=== PATIENT | female | born 1940 | race Caucasian/White ===

== ENCOUNTER 2019-04-17 09:30 | Emergency (ER) | payer OTHER ==
[2019-04-17] MEDS ORDERED: ONDANSETRON 4 MG/2 ML VIAL ONE (09:52)
[2019-04-17] MEDS ORDERED: MORPHINE 4 MG/ML SYR ONE (09:52)
[2019-04-17] MEDS ORDERED: NA CHLORIDE 0.9% 1,000 ML ONE (09:52)
[2019-04-17 10:07] LABS: Absolute Lymphocytes (CBC) 2.1 K/uL (0.7-4.9); Basophils % 0.3 % (0-1.3); Hematocrit 42.5 % (36.0-45.0); Lymphocytes % 26.4 % (15.3-44.8); MPV 9.3 fL (7.6-11.3); RBC Red Blood Cell Count 4.75 M/uL (3.86-4.86)
[2019-04-17 10:10] LABS: Protime INR 1.04
[2019-04-17 10:26] LABS: ALT/SGPT 31 U/L (12-78); AST/SGOT 24 U/L (15-37); Albumin 3.2 g/dL (3.4-5.0); Alkaline Phosphatase 103 U/L (45-117); BUN Blood Urea Nitrogen 9 mg/dL (7-18); Bicarbonate 26 mmol/L (21-32); Bilirubin Direct 0.2 mg/dL (0-0.2); Bilirubin Total 0.6 mg/dL (0.2-1.0); Glucose Level 132 mg/dL (74-106); Magnesium 2.1 mg/dL (1.8-2.4); NT PRO-BNP 54 pg/mL (<450); Potassium 3.9 mmol/L (3.5-5.1); Protein, Total 6.6 g/dL (6.4-8.2); Sodium Level 141 mmol/L (136-145); Troponin (Emerg Dept Use Only) < 0.02 ng/mL (0.0-0.045)
[2019-04-17] MEDS ORDERED: HYDROMORPHONE HCL 0.5 MG/0.5 ML INJ ONE (10:32)
--- NOTE | 2019-04-17 11:49 | EDPHYS ---
Physician Documentation [facility] Name: Miley Blackburn Age: 78 yrs Sex: Female : 1940 Arrival Date: 04/17/2019 Time: 09:[address] Private MD: ED Physician Dustin Finn HPI: 04/17 09:45 This 78 yrs old Female presents to ER via EMS with complaints of Fall Injury. [facility] 09:45 Details of fall: The patient fell from an upright position, while running, while soren walking. Onset: The symptoms/episode began/occurred just prior to arrival. Associated injuries: The patient sustained injury to the head, left hip, left gluteal fold, left inner thigh and left upper thigh, decreased range of motion, painful injury. Severity of symptoms: At their worst the symptoms were moderate, in the emergency department the symptoms are unchanged. The patient has not experienced similar symptoms in the past. Historical: - Allergies: 09:38 No Known Allergies; tw2 - Home Meds: 09:38 None [Active]; tw2 - PMHx: 09:38 None; tw2 - PSHx: 09:38 tubal ; partial thyroidectomy; tw2 - Immunization history:: Adult Immunizations. - Coronavirus screen:: The patient has NOT traveled to [place], [place], or [place] in the past 14 days. - Immunization history: Last tetanus immunization: unknown. - Family history:: not pertinent. - Social history:: Smoking status: . - Ebola Screening: : Patient denies travel to an Ebola-affected area in the 21 days before illness onset. ROS: 09:45 Constitutional: Negative for fever, chills, and weight loss, Eyes: Negative for injury, soren pain, redness, and discharge, ENT: Negative for injury, pain, and discharge, Neck: Negative for injury, pain, and swelling, Cardiovascular: Negative for chest pain, palpitations, and edema, Respiratory: Negative for shortness of breath, cough, wheezing, and pleuritic chest pain, Abdomen/GI: Negative for abdominal pain, nausea, vomiting, diarrhea, and constipation, Back: Negative for injury and pain, : Negative for injury, bleeding, discharge, and swelling, Skin: Negative for injury, rash, and discoloration, Neuro: Negative for headache, weakness, numbness, tingling, and seizure, Psych: Negative for depression, anxiety, suicide ideation, homicidal ideation, and hallucinations, Allergy/Immunology: Negative for hives, rash, and allergies, Endocrine: Negative for neck swelling, polydipsia, polyuria, polyphagia, and marked weight changes, Hematologic/Lymphatic: Negative for swollen nodes, abnormal bleeding, and unusual bruising. 09:45 MS/extremity: Positive for decreased range of motion, pain, swelling, tenderness, of the left hip, lateral aspect of left thigh, left gluteal fold, left hamstring, left inner thigh, medial aspect of left thigh, left upper thigh and left quadriceps. Exam: 09:45 Constitutional: This is a well developed, well nourished patient who is awake, alert, soren and in no acute distress. Head/Face: Normocephalic, atraumatic. Eyes: Pupils equal round and reactive to light, extra-ocular motions intact. Lids and lashes normal. Conjunctiva and sclera are non-icteric and not injected. Cornea within normal limits. Periorbital areas with no swelling, redness, or edema. ENT: Nares patent. No nasal discharge, no septal abnormalities noted. Tympanic membranes are normal and external auditory canals are clear. Oropharynx with no redness, swelling, or masses, exudates, or evidence of obstruction, uvula midline. Mucous membranes moist. Neck: Trachea midline, no thyromegaly or masses palpated, and no cervical lymphadenopathy. Supple, full range of motion without nuchal rigidity, or vertebral point tenderness. No Meningismus. Chest/axilla: Normal chest wall appearance and motion. Nontender with no deformity. No lesions are appreciated. Cardiovascular: Regular rate and rhythm with a normal S1 and S2. No gallops, murmurs, or rubs. Normal PMI, no JVD. No pulse deficits. Respiratory: Lungs have equal breath sounds bilaterally, clear to auscultation and percussion. No rales, rhonchi or wheezes noted. No increased work of breathing, no retractions or nasal flaring. Abdomen/GI: Soft, non-tender, with normal bowel sounds. No distension or tympany. No guarding or rebound. No evidence of tenderness throughout. Back: No spinal tenderness. No costovertebral tenderness. Full range of motion. Skin: Warm, dry with normal turgor. Normal color with no rashes, no lesions, and no evidence of cellulitis. Neuro: Awake and alert, GCS 15, oriented to person, place, time, and situation. Cranial nerves II-XII grossly intact. Motor strength 5/5 in all extremities. Sensory grossly intact. Cerebellar exam normal. Normal gait. Psych: Awake, alert, with orientation to person, place and time. Behavior, mood, and affect are within normal limits. 09:45 Musculoskeletal/extremity: Extremities: noted in the left hip, lateral aspect of left thigh, left gluteal fold, left hamstring, left inner thigh, medial aspect of left thigh, left upper thigh and left quadriceps: decreased ROM, pain. Vital Signs: 09:36 BP 115 / 57; Pulse 70; Resp 17; Temp 97.6(TE); Pulse Ox 100% on R/A; Weight 49.9 kg tw2 (R); Height 5 ft. 0 in. (152.40 cm); Pain 10/10; 11:21 BP 122 / 58; Pulse 72; Resp 17; Pulse Ox 87% on R/A; tw2 12:49 BP 113 / 63; Pulse 62; Resp 17; Pulse Ox 98% on R/A; tw2 13:20 BP 144 / 63; Pulse 84; Resp 16; Pulse Ox 100% on 2 lpm NC; tw2 09:36 Body Mass Index 21.48 (49.90 kg, 152.40 cm) tw2 11:21 pt placed on o2 via 2l nc at this time, provider notified, will continue to monitor tw2 Oscar Coma Score: 09:32 Eye Response: spontaneous(4). Verbal Response: oriented(5). Motor Response: obeys tw2 commands(6). Total: 15. Trauma Score (Adult): 09:32 Eye Response: spontaneous(1); Verbal Response: oriented(1); Motor Response: obeys tw2 commands(2); Systolic BP: > 89 mm Hg(4); Respiratory Rate: 10 to 29 per min(4); Oscar Score: 15; Trauma Score: 12 MDM: 09:36 Patient medically screened. [facility] 09:47 Data reviewed: vital signs, nurses notes, lab test result(s), EKG, radiologic studies, soren plain films. 04/17 09:44 Order name: Basic Metabolic Panel; Complete Time: 11:55 [facility] 04/17 09:44 Order name: CBC with Diff; Complete Time: 11:55 soren 04/17 09:44 Order name: LFT's; Complete Time: 11:55 [facility] 04/17 09:44 Order name: Magnesium; Complete Time: 11:55 [facility] 04/17 09:44 Order name: NT PRO-BNP; Complete Time: 11:55 [facility] 04/17 09:44 Order name: PT-INR; Complete Time: 11:55 [facility] 04/17 09:44 Order name: Troponin (emerg Dept Use Only); Complete Time: 11:55 [facility] 04/17 09:44 Order name: XRAY Chest (1 view); Complete Time: 12:43 soren 04/17 09:44 Order name: Pelvis XRAY; Complete Time: 12:43 [facility] 04/17 09:44 Order name: Hip Left 2 View XRAY [facility] 04/17 09:44 Order name: Femur Left XRAY [facility] 04/17 11:16 Order name: CT Pelvis wo Cont: attention left hip; Complete Time: 12:43 04/17 09:44 Order name: EKG; Complete Time: 09:45 [facility] 04/17 09:44 Order name: Cardiac monitoring; Complete Time: 10:03 [facility] 04/17 09:44 Order name: EKG - Nurse/Tech; Complete Time: 12:37 [facility] 04/17 09:44 Order name: IV Saline Lock; Complete Time: 10:04 [facility] 04/17 09:44 Order name: Labs collected and sent; Complete Time: 10:04 [facility] 04/17 09:44 Order name: O2 Per Protocol; Complete Time: 11:54 [facility] 04/17 09:44 Order name: O2 Sat Monitoring; Complete Time: 11:54 [facility] 04/17 12:00 Order name: Luna; Complete Time: 12:35 aa5 Administered Medications: 10:00 Drug: Zofran 4 mg Route: IVP; Site: left antecubital; tw2 10:44 Follow up: Response: No adverse reaction tw2 10:02 Drug: morphine 4 mg Route: IVP; Site: left antecubital; tw2 10:40 Follow up: Response: No adverse reaction; Pain is unchanged, physician notified tw2 10:02 Drug: NS 0.9% 500 ml Route: IV; Rate: bolus; Site: left antecubital; tw2 13:21 Follow up: IV Status: Infusion continued upon transfer tw2 10:02 Drug: NS 0.9% 1000 ml Route: IV; Rate: 125 ml/hr; Site: left antecubital; tw2 13:21 Follow up: IV Status: Infusion continued upon transfer tw2 10:37 Drug: Dilaudid 0.5 mg {Note: rass 0 .} Route: IVP; Site: left antecubital; tw2 12:02 Follow up: Response: No adverse reaction; Pain is decreased; RASS: Light sedation (-2) tw2 13:21 Not Given (pts condition): Dilaudid 0.5 mg IVP once; RASS on ADMIN: Combtv4, Very tw2 Agttd3, Agttd2, Rstlss1, AlertClm0, Drwsy-1, Lt Sdtn-2, Mod Sdtn-3, Dp Sdtn-4, UnArsble-5 Disposition: 04/17/19 11:47 Transfer ordered to [facility]. Diagnosis are Posterior dislocation of left hip, Fracture of other parts of pelvis, Fracture of posterior wall of acetabulum, Superficial injury of head. - Reason for transfer: Higher level of care. - Accepting physician is to [facility]. - Condition is Fair. - Problem is new. - Symptoms have improved. Signatures: Dispatcher [employer] EDDustin Hughes MD MD cha Calderon, Audri, RN RN aa5 Lea Aldridge RN RN tw2 Corrections: (The following items were deleted from the chart) 11:48 11:47 04/17/2019 11:47 Transfer ordered to [facility]. Diagnosis is [facility] Posterior dislocation of left hip; Fracture of other parts of pelvis; Fracture of posterior wall of acetabulum. Reason for transfer: Higher level of care. Accepting physician is to [facility]. Condition is Fair. Problem is new. Symptoms have improved. [facility] 12:58 12:43 Head C Spine MPR Wo Con+CT.RAD.BRZ ordered. EDMS EDMS 12:59 12:43 Facial Bones W/ MPR+CT.RAD.BRZ ordered. EDOK EDMS 13:21 11:48 04/17/2019 11:47 Transfer ordered to [facility]. Diagnosis is tw2 Posterior dislocation of left hip; Fracture of other parts of pelvis; Fracture of posterior wall of acetabulum; Superficial injury of head. Reason for transfer: Higher level of care. Accepting physician is to [facility]. Condition is Fair. Problem is new. Symptoms have improved. soren
--- NOTE | 2019-04-17 11:49 | ER ---
Nurse's Notes [facility] Name: Miley Blackburn Age: 78 yrs Sex: Female : 1940 Arrival Date: 04/17/2019 Time: 09:[address] Private MD: Diagnosis: Posterior dislocation of left hip;Fracture of other parts of pelvis;Fracture of posterior wall of acetabulum;Superficial injury of head Presentation: 04/17 09:32 Presenting complaint: EMS states: pt was jogging in [place], lost her tw2 footing, was down about 15 minutes before she was seen, she is complaining of severe LEFT hip pain, possible dislocation, denies LOC, has obvious facial swelling to RIGHT forehead and cheekbone area., we gave 30 toradol iv, she has a 22g RIGHT AC. Transition of care: patient was not received from another setting of care. Onset of symptoms was April 17, 2019. Risk Assessment: Do you want to hurt yourself or someone else? Patient reports no desire to harm self or others. Initial Sepsis Screen: Does the patient meet any 2 criteria? No. Patient's initial sepsis screen is negative. Does the patient have a suspected source of infection? No. Patient's initial sepsis screen is negative. Care prior to arrival: None. Placed on backboard. Medication(s) given: toradol 30. Mechanism of Injury: Fall from standing position. 09:32 Method Of Arrival: EMS: [place] [facility] tw2 09:32 Acuity: ZIA 3 tw2 09:32 Trauma event details: Injury occurred in the county of. tw2 09:32 Mechanism of Injury: Fall. tw2 Triage Assessment: 09:35 General: Appears uncomfortable, slender, well groomed, Behavior is cooperative, tw2 appropriate for age. Pain: Complains of pain in left hip. Musculoskeletal: Range of motion: limited in left hip. Trauma Activation: Alert Physician: ED Physician; Name: ; Notified At: ; Arrived At: Physician: General Surgeon; Name: ; Notified At: ; Arrived At: Physician: Radiology; Name: ; Notified At: ; Arrived At: Physician: Respiratory; Name: ; Notified At: ; Arrived At: Physician: Lab; Name: ; Notified At: ; Arrived At: Historical: - Allergies: 09:38 No Known Allergies; tw2 - Home Meds: 09:38 None [Active]; tw2 - PMHx: 09:38 None; tw2 - PSHx: :38 tubal ; partial thyroidectomy; tw2 - Immunization history:: Adult Immunizations. - Coronavirus screen:: The patient has NOT traveled to [place], [place], or [place] in the past 14 days. - Immunization history: Last tetanus immunization: unknown. - Family history:: not pertinent. - Social history:: Smoking status: . - Ebola Screening: : Patient denies travel to an Ebola-affected area in the 21 days before illness onset. Screenin:32 Abuse screen: Denies threats or abuse. Nutritional screening: No deficits noted. tw2 Tuberculosis screening: No symptoms or risk factors identified. Fall Risk None identified. Primary Survey: 09:32 NO uncontrolled hemorrhage observed. A: The patient is alert. Breathing/Chest: tw2 Respiratory pattern: regular, Respiratory effort: spontaneous, unlabored, Breath sounds: clear, bilaterally. Chest inspection: symmetrical rise and fall of the chest. Circulation: Heart tones present. Skin color: pink, Skin temperature: warm, dry. Disability Alert. Exposure/Environment: All clothing and personal items were removed. Forensic evidence collection is not deemed to be indicated at this time. Items placed in patient belonging bag. There is no evidence of uncontrolled external bleeding. Obvious injury(ies) are noted at this time: abrasion, bruising and swelling noted to right forehead and cheek, left leg and hip pain A warming method has been applied: A warm blanket has been provided to the patient. 12:46 Reassessment Airway Airway Patent Breathing/Chest Respiratory pattern Regular tw2 Respiratory effort Spontaneous Unlabored Breath sounds Clear Chest inspection Symmetrical Circulation Heart tones Present Disability Alert. Secondary Survey: 09:32 HEENT: Face Other pt c/o pain to LEFT hip and leg, noted bruising swelling and abrasion tw2 to RIGHT cheek and forehead, no bleeding noted. Gastrointestinal: Abdomen is soft, Bowel sounds present in all quadrants. Palpation. : No signs and/or symptoms were reported regarding the genitourinary system. Musculoskeletal: Range of motion: limited in left hip. Assessment: 09:32 General: Appears uncomfortable, slender, well groomed, Behavior is calm, cooperative, tw2 appropriate for age. Pain: Complains of pain in left leg and left hip. Neuro: Level of Consciousness is awake, alert, obeys commands, Oriented to person, place, time, situation. EENT: No signs and/or symptoms were reported regarding the EENT system. Cardiovascular: Heart tones S1 S2 Capillary refill < 3 seconds. Respiratory: Airway is patent Respiratory effort is even, unlabored, Respiratory pattern is regular, symmetrical, Breath sounds are clear bilaterally. GI: No signs and/or symptoms were reported involving the gastrointestinal system. Abdomen is flat, Bowel sounds present X 4 quads. : No signs and/or symptoms were reported regarding the genitourinary system. Derm: Bruising that is on forehead and right cheek with swelling and abrasion noted to RIGHT cheek and forehead. Musculoskeletal: Circulation, motion, and sensation intact. Range of motion: limited in left hip Reports pain in left leg and left hip. 10:38 Reassessment: pt in xray at this time, pt uncooperative in xray, tractor trailer mechanic Toyin tw2 explaining to pt that we need xray to be able to help pt, pt medicated per orders, pt relaxed a small amount, did allow us to roll her onto her back at this time, pelvis xray taken, pt encouraged to take deep breaths at this time and cooperate to the best of her ability. 11:22 Reassessment: Patient appears in no apparent distress at this time. Patient and/or tw2 family updated on plan of care and expected duration. Pain level reassessed. pt back from xray at this time, pt states "i am sleepy but it still hurts", pt is drowsy oxygen sat has dropped to 87%, pt placed on o2 at 2L nc and is 99% at this time. 12:46 Reassessment: Patient appears in no apparent distress at this time. Patient and/or tw2 family updated on plan of care and expected duration. Pain level reassessed. pt remains drowsy at this time, pain is controled. 13:00 Reassessment: pt refusing CT head at this time, states "cant we just wait until i get tw2 to [place]", provider notified. 13:19 Reassessment: Patient appears in no apparent distress at this time. Patient and/or tw2 family updated on plan of care and expected duration. Pain level reassessed. Vital Signs: 09:36 BP 115 / 57; Pulse 70; Resp 17; Temp 97.6(TE); Pulse Ox 100% on R/A; Weight 49.9 kg tw2 (R); Height 5 ft. 0 in. (152.40 cm); Pain 10/10; 11:21 BP 122 / 58; Pulse 72; Resp 17; Pulse Ox 87% on R/A; tw2 12:49 BP 113 / 63; Pulse 62; Resp 17; Pulse Ox 98% on R/A; tw2 13:20 BP 144 / 63; Pulse 84; Resp 16; Pulse Ox 100% on 2 lpm NC; tw2 09:36 Body Mass Index 21.48 (49.90 kg, 152.40 cm) tw2 11:21 pt placed on o2 via 2l nc at this time, provider notified, will continue to monitor tw2 Oscar Coma Score: 09:32 Eye Response: spontaneous(4). Verbal Response: oriented(5). Motor Response: obeys tw2 commands(6). Total: 15. Trauma Score (Adult): 09:32 Eye Response: spontaneous(1); Verbal Response: oriented(1); Motor Response: obeys tw2 commands(2); Systolic BP: > 89 mm Hg(4); Respiratory Rate: 10 to 29 per min(4); [place] Score: 15; Trauma Score: 12 ED Course: 09:31 Patient arrived in ED. tw2 09:32 Bed in low position. Call light in reach. Side rails up X2. court recording monitor on. Pulse tw2 ox on. NIBP on. Warm blanket given. 09:32 Patient maintains SpO2 saturation greater than 95% on room air. tw2 09:32 Thermoregulation: warm blanket given to patient. tw2 09:35 Triage completed. tw2 09:35 Arm band placed on. tw2 09:36 Dustin Finn MD is Attending Physician. soren 09:59 Inserted saline lock: 22 gauge in left antecubital area, using aseptic technique. Blood tw2 collected. Maintain EMS IV. Dressing intact. Site clean \\T\\ dry. Gauge \\T\\ site: 22 RIGHT ac. 10:02 Lea Aldridge RN is Primary Nurse. tw2 11:23 XRAY Chest (1 view) In Process Unspecified. EDMS 11:23 Pelvis XRAY In Process Unspecified. EDMS 11:23 Hip Left 2 View XRAY In Process Unspecified. EDMS 11:23 Femur Left XRAY In Process Unspecified. EDMS 11:57 CT Pelvis wo Cont: attention left hip In Process Unspecified. EDMS 11:[address] Finn with [facility] from the [facility]. 12:05 CT completed. Patient tolerated procedure well. Patient moved back from [place]. mw3 12:12 administrative approval given by Alysia Dubois Stonemason Apprentice Rail Grinder Patient eb has been accepted to [facility] ER/ Dr. Kim has accepted the patient in transfer without conference. / report to be called to [phone]. 12:40 Luna cath inserted, using sterile technique, [address], balloon inflated, to tw2 gravity drainage, urine specimen collected. dank Cassidy RN served as art museum docent. Patient transferred, IV remains in place. 12:47 Report given to ABBEY Mc at [facility]. tw2 13:21 No provider procedures requiring assistance completed. tw2 Administered Medications: 10:00 Drug: Zofran 4 mg Route: IVP; Site: left antecubital; tw2 10:44 Follow up: Response: No adverse reaction tw2 10:02 Drug: morphine 4 mg Route: IVP; Site: left antecubital; tw2 10:40 Follow up: Response: No adverse reaction; Pain is unchanged, physician notified tw2 10:02 Drug: NS 0.9% 500 ml Route: IV; Rate: bolus; Site: left antecubital; tw2 13:21 Follow up: IV Status: Infusion continued upon transfer tw2 10:02 Drug: NS 0.9% 1000 ml Route: IV; Rate: 125 ml/hr; Site: left antecubital; tw2 13:21 Follow up: IV Status: Infusion continued upon transfer tw2 10:37 Drug: Dilaudid 0.5 mg {Note: rass 0 .} Route: IVP; Site: left antecubital; tw2 12:02 Follow up: Response: No adverse reaction; Pain is decreased; RASS: Light sedation (-2) tw2 13:21 Not Given (pts condition): Dilaudid 0.5 mg IVP once; RASS on ADMIN: Combtv4, Very tw2 Agttd3, Agttd2, Rstlss1, AlertClm0, Drwsy-1, Lt Sdtn-2, Mod Sdtn-3, Dp Sdtn-4, UnArsble-5 Intake: 13:20 PO: 0ml; IV: 200ml (IV Fluid); Total: 200ml. tw2 Output: 13:20 Urine: 200ml (Luna); Total: 200ml. tw2 Outcome: 11:47 ER care complete, transfer ordered by MD. doty 13:20 Transferred by ground EMS to [facility]. tw2 13:20 Condition: stable 13:20 Patient's length of stay in the Emergency Department was greater than 2 hours. d/t imaging and transferPatient's length of stay extended due to 13:21 Patient left the ED. tw2 Signatures: Dispatcher [employer] EDDustin Hughes MD MD cha Wise, Tara, RN RN tw2 Lidya Garrido Michelle mw3 Corrections: (The following items were deleted from the chart) 12:47 12:46 Reassessment: Patient appears in no apparent distress at this time. Patient tw2 and/or family updated on plan of care and expected duration. Pain level reassessed. tw2
--- NOTE | 2019-04-17 12:10 | RAD REPORT ---
EXAM DESCRIPTION: RAD - Pelvis - 04/17/2019 11:23 am CLINICAL HISTORY: PAIN Trauma, pain COMPARISON: None FINDINGS: AP pelvis, left hip and left femur- multiple projections Suspected posterior dislocation of the left femoral head is present. The left femoral head is positio momo somewhat superiorly and posteriorly. Multiple fracture fragments involving the left posterior jefry tabular rim and column noted.
--- NOTE | 2019-04-17 12:14 | RAD REPORT ---
EXAM DESCRIPTION: CT - Pelvis Wo Cont - 04/17/2019 11:57 am CLINICAL HISTORY: fall Fall, left hip pain COMPARISON: No comparisons TECHNIQUE: All CT scans are performed using dose optimization technique as appropriate and may inclu de automated exposure control or mA/KV adjustment according to patient size. FINDINGS: Dislocation of the left femoral head is present posteriorly. Associated fracture of the posterior aspect of the left acetabular rim as well as the left posterior acetabular column. Multiple fracture fragment evident posteriorly and laterally. Soft tissue swelling is seen about the left hip with edema present in the soft tissues. The left femoral head and neck appear intact although the anterior margin of the femoral head appears impacted upon the posterior acetabulum. Sacral ala as well as the superior and inferior pubic rami are intact. IMPRESSION: Posterior fracture dislocation of the left hip as detailed.
--- NOTE | 2019-04-17 12:17 | RAD REPORT ---
EXAM DESCRIPTION: RAD - Chest Single View - 04/17/2019 11:23 am CLINICAL HISTORY: COUGH Chest pain. COMPARISON: CHEST SINGLE VIEW dated 12/25/2014; ABDOMEN ACUTE SERIES dated 01/24/2012 FINDINGS: Portable technique limits examination quality. The lungs are mildly emphysematous but grossly clear. The heart is normal in size. No displaced fract ures. IMPRESSION: No acute intrathoracic process suspected.
[2019-04-17 13:35] VITALS: TEMP 97.6
[2019-04-17 13:39] VITALS: BP 144/63; O2SAT 100
--- NOTE | 2019-04-19 08:26 | EKG ---
Test Date: 2019-04-17 Test Time: 12:11:37 Quality Cloth Tester: SWG MEASUREMENT RESULTS: Intervals: Rate: 62 MI: 116 QRSD: 74 QT: 424 QTc: 430 [place]: P: 64 MI: 116 QRS: -1 T: 55 INTERPRETIVE STATEMENTS: Normal sinus rhythm Normal ECG Compared to ECG 01/24/2012 01:03:32 Myocardial infarct finding no longer present Electronically Signed On 04-19-19 08:26:20 SHOT HOLE DRILLER by Arun Petty
--- NOTE | 2019-04-19 13:28 | RAD REPORT ---
EXAM DESCRIPTION: RAD - Hip Left 2 View - 04/17/2019 11:23 am CLINICAL HISTORY: PAIN Trauma, pain COMPARISON: None FINDINGS: AP pelvis, left hip and left femur- multiple projections Suspected posterior dislocation of the left femoral head is present. The left femoral head is positio momo somewhat superiorly and posteriorly. Multiple fracture fragments involving the left posterior jefry tabular rim and column noted.
--- NOTE | 2019-04-19 13:28 | RAD REPORT ---
EXAM DESCRIPTION: RAD - Femur Left - 04/17/2019 11:23 am CLINICAL HISTORY: PAIN Trauma, pain COMPARISON: None FINDINGS: AP pelvis, left hip and left femur- multiple projections Suspected posterior dislocation of the left femoral head is present. The left femoral head is positio momo somewhat superiorly and posteriorly. Multiple fracture fragments involving the left posterior jefry tabular rim and column noted.
== END 2019-04-17 13:21 | disposition short-term general hospital (02) ==
LOC: ER 09:30
DX: S73.015A Posterior dislocation of left hip, initial encounter (principal); S32.89XA Fracture of other parts of pelvis, initial encounter for closed fracture; S32.422A Displaced fracture of posterior wall of left acetabulum, initial encounter for closed fracture; W19.XXXA Unspecified fall, initial encounter; Y92.9 Unspecified place or not applicable; Y93.02 Activity, running
CPT/HCPCS: 96361; 93005; 85025; 80048; 36415; 83735; 85610; 80076; 84484; 83880; 72192; 71045; 72170; 73502; 73552; 51702; 96375; 96374; 99285; J1170; J7030; J2405